=== PATIENT | female | born 1935 | race Caucasian/White ===

== ENCOUNTER → 2017-03-06 | Outpatient (CLI) | payer MEDICARE, BC | END | disposition home or self-care (01) | LOC: RAD 14:26 | PROVIDERS: ATTEND Registered Nurse Registered Nurse First Assistant | DX: M47.894 Other spondylosis, thoracic region (principal); M41.86 Other forms of scoliosis, lumbar region; Z98.890 Other specified postprocedural states; Z98.1 Arthrodesis status; G89.29 Other chronic pain | CPT/HCPCS: 72082; 72110 ==